=== PATIENT | male | born 1945 | race Caucasian/White ===

== ENCOUNTER 2016-04-25 12:58 | Emergency (ER) | payer MEDICARE ==
--- NOTE | ~2016-04-25 | EKG ---
PATIENT: LILIANA HOWARD UNIT #: [id number] Ventricular Rate: 77 BPM Atrial Rate: 77 BPM P-R Interval: 178 ms QRS Duration: 82 ms Q-T Interval: 412 ms QTC Calculation(Bezet): 466 ms P [place]: 42 degrees Calculated R [place]: 17 degrees Calculated T [place]: 70 degrees Diagnosis Line: Normal sinus rhythm Diagnosis Line: Nonspecific ST and T wave abnormality Diagnosis Line: Abnormal ECG Diagnosis Line: Diagnosis Line: Confirmed by MILAN CARRILLO MD ([id number]) on Diagnosis Line: 04/26/2016 10:44:03 PM INTERPRETING MD: LUDWIN
--- NOTE | ~2016-04-25 | CT71 ---
[facility] A Service of [facility] RADIOLOGY TEXT RESULTS PATIENT: LILIANA HOAWRD LOCATION: [place] : 43 UNIT #: [id number] AGE: [address]: Shon Jaimes MD SEX: M ORDER DR: [id number] [facility] [address] [place], [place] [address] [id number] E MR#: [id number] Acc #: [id number] NAME: LILIANA HOWARD : 1945 SEX: M STUDY DATE/TIME: 04/25/2016 11:54 UNIT: [facility] ROOM: STUDY DESCRIPTION: CT Head Wo Contrast Attending Physician: Shon Jaimes M.D. Ordering Physician: Shon Jaimes M.D. MEDICAL IMAGING REPORT This report is preliminary unless electronic signature is present EXAM CT head, noncontrast, 04/25/2016. HISTORY 70-year-old male with history of Alzheimer's dementia, found down on floor at the nursing care facility earlier this morning. He has a laceration of the on the back of his head and complains of neck pain. TECHNIQUE CT examination of the head was performed without IV contrast. This CT exam was performed with one or more of the following radiation dose reduction techniques: automatic exposure control, adjustment of mA and/or kV according to patient size, and iterative reconstruction. FINDINGS The images are somewhat degraded by patient motion artifact. No acute intracranial abnormality. No visible skull fracture. Moderately severe generalized cerebral atrophy. Advanced diffuse low-attenuation white matter changes, nonspecific but likely related to chronic small vessel disease. These findings are stable since 08/22/2014. No evidence of intracranial hemorrhage, mass, mass effect, cerebral edema or progressive ventricular enlargement. IMPRESSION 1. No acute intracranial abnormality or visible skull fracture. 2. Stable diffuse chronic changes as noted above. 3. No change since 08/22/2014. [facility] A Service [facility] RADIOLOGY TEXT RESULTS PATIENT: LILIANA HOWARD LOCATION: [facility] : 43 UNIT #: [id number] AGE: [address]: Shon Jaimes MD SEX: M ORDER DR: Dictated by... Parker Monsivais M.D. THIS IS AN ELECTRONICALLY VERIFIED REPORT Parker Monsivais M.D. at 04/26/2016 5:55 AM PURVI/juancho TD: 04/25/2016 15:16 JOB #: [id number] MEDICAL IMAGING REPORT COPY
--- NOTE | ~2016-04-25 | CT52 ---
[facility] A Service [facility] RADIOLOGY TEXT RESULTS PATIENT: LILIANA HOWARD LOCATION: [facility] : 43 UNIT #: [id number] AGE: [address]: Shon Jaimes MD SEX: M ORDER DR: [id number] [facility]. [place], [place] [address] [id number] E MR#: [id number] Acc #: [id number] NAME: LILIANA HOWARD : 1945 SEX: M STUDY DATE/TIME: 04/25/2016 11:54 UNIT: [facility] ROOM: STUDY DESCRIPTION: CT Cervical Spine Wo Cont Attending Physician: Shon Jaimes M.D. Ordering Physician: Shon Jaimes M.D. MEDICAL IMAGING REPORT This report is preliminary unless electronic signature is present EXAM CT cervical spine 04/25/[address] head report, same date. TECHNIQUE Thin section axial CT images were obtained from the skull base through the upper margin of T2. Sagittal and coronal images were reconstructed. FINDINGS No fracture or other acute osseous abnormality is demonstrated. 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 Cervical vertebral alignment is normal. IMPRESSION 1. No fracture or other acute osseous abnormality. 2. Multilevel degenerative disc space changes throughout the cervical spine with posterior longitudinal ligament ossification from C3 through C7. 3. Cervical vertebral alignment is normal. Dictated by... Parker Monsivais M.D. THIS IS AN ELECTRONICALLY VERIFIED REPORT Parker Monsivais M.D. at 04/26/2016 5:55 AM RGW/pcl [facility] A Service [facility] RADIOLOGY TEXT RESULTS PATIENT: LILIANA HOWARD LOCATION: [facility] : 41 UNIT #: [id number] AGE: [address]: Shon Jaimes MD SEX: M ORDER DR: TD: 04/25/2016 15:19 JOB #: [id number] MEDICAL IMAGING REPORT COPY
[2016-04-25 11:59] LABS: URINE SOURCE CLEAN CATCH
[2016-04-25 12:03] LABS: BASOPHIL% 0.5 % (0-2.5); EOSINOPHIL% 0.5 % (0.0-7.0); HEMATOCRIT 39.7 % (38.0-50.0); HEMOGLOBIN 13.1 gm/dL (13.0-16.0); LYMPHOCYTE# 1.2 X10e3 (1.0-3.5); LYMPHOCYTE% 15.6 % (17.0-45.0); MEAN CELL VOLUME 95.1 FL (83-96); MEAN CORPUSCULAR HEMOGLOBIN 31.5 PG (28-34); MEAN CORPUSCULAR HGB CONC 33.1 g/dL (30-36); MEAN PLATELET VOLUME 8.3 FL (6.5-11.5); MONOCYTE# 0.7 X10e3 (0-1.0); MONOCYTE% 8.5 % (3.0-12.0); NEUTROPHIL% 74.9 % (40-75); PLATELET COUNT 150 X10e3 (140-420); RED BLOOD COUNT 4.18 X10e (3.90-5.60); RED CELL DISTRIBUTION WIDTH 13.3 % (11.0-15.5)
[2016-04-25 12:06] LABS: URINE APPEARANCE CLOUDY; URINE BILIRUBIN NEG (NEG); URINE BLOOD NEG (NEG); URINE COLOR YELLOW; URINE GLUCOSE 100 MG/DL (NEG); URINE KETONE NEG (NEG); URINE LEUKOCYTE ESTERASE NEG (NEG); URINE NITRATE NEG (NEG); URINE PROTEIN NEG (NEG); URINE SPECIFIC GRAVITY 1.018 (1.003-1.035); URINE UROBILINOGEN 0.2 MG/DL (NEG)
[2016-04-25 12:14] LABS: CULTURE INDICATED? NO
[2016-04-25 12:17] LABS: DIFF IND NO
[2016-04-25 12:22] LABS: INR 1.1; PARTIAL THROMBOPLASTIN TIME 25.9 SECONDS (23.5-31.3); PROTHROMBIN TIME (PATIENT) 11.4 SECONDS (9.6-11.5)
[2016-04-25 12:43] LABS: ALBUMIN SERUM 3.9 g/dL (3.5-5.0); ALKALINE PHOSPHATASE 65 U/L (32-92); ALT (SGPT) 20 U/L (10-40); AST (SGOT) 24 U/L (10-42); BILIRUBIN, DIRECT 0.1 mg/dL (0.0-0.2); BILIRUBIN,INDIRECT 0.6 mg/dL (0.0-0.9); BILIRUBIN,TOTAL 0.7 mg/dL (0.2-2.0); BLOOD UREA NITROGEN 12 mg/dL (9-23); BUN/CREATININE RATIO 13.33; CALCIUM SERUM 8.8 mg/dL (8.4-10.2); CARBON DIOXIDE 26 mmol/L (22-31); CHLORIDE 104 mmol/L (100-111); CREATININE SERUM 0.9 mg/dL (0.6-1.4); GLOM FILT RATE Estimated ABOVE60 mL/min (>60); GLUCOSE FASTING 203 mg/dL (70-110); POTASSIUM 3.9 mmol/L (3.5-5.1); PROTEIN TOTAL SERUM 7.1 g/dL (6.0-8.3); SODIUM 137 mmol/L (135-145)
[~2016-04-25 12:58] MED LIST: ARICEPT; ASPIRIN81 M2; CLONAZEPAM0.5 MG; DEPAKOTE; ESTRADIOL0.5 MG; LASIX; LIPITOR; NAMENDA5 MG; PROZAC; SEROQUEL
== END 2016-04-25 14:15 ==
LOC: CED 12:58
PROVIDERS: Emergency Medicine
DX: S01.01XA Laceration without foreign body of scalp, initial encounter (principal); F03.90 Unspecified dementia, unspecified severity, without behavioral disturbance, psychotic disturbance, mood disturbance, and anxiety; W19.XXXA Unspecified fall, initial encounter
CPT/HCPCS: 12002; 36415; 70450; 72125; 80048; 80076; 81003; 82947; 85025; 85610; 85730; 90471; 90715; 93005; 96372; 99284; J3486